=== PATIENT | female | born 1970 | race Caucasian/White ===

== ENCOUNTER 2017-01-04 18:47 | Emergency (ER) | payer BC ==
[~2017-01-04] VITALS: Ht 175.3 cm; Wt 117.2 kg
[2017-01-04 18:54] VITALS: Ht 175.3 cm; Wt 117.2 kg
[2017-01-04] MEDS ORDERED: SODIUM CHLORIDE 0.9% 1000ML 1,000 ML IV STA (20:11)
[2017-01-04 20:36] LABS: BASO % 0.2 %; BASO ABS # 0.02 K/uL (0-0.2); COMPLETE YES; EOS % 0.7 %; HEMATOCRIT 41.4 % (37-47); IG% 0.3 %; LYMPH % 8.3 %; LYMPH ABS # 0.86 K/uL (1.2-3.4); MEAN CORPUSCULAR HEMOGLOBIN 32.2 pg (25-34); MEAN PLATELET VOLUME 9.5 fL (7.4-10.4); MONO % 7.5 %; PLATELET COUNT 168 K/uL (130-400); WHITE BLOOD COUNT 10.33 K/uL (4.8-10.8)
--- NOTE | 2017-01-04 20:39 | DIAGNOSTIC IMAGING REPORT ---
CHEST ONE VIEW PORTABLE CLINICAL HISTORY: Evaluate Fever/Sepsis dyspnea COMPARISON STUDY: No previous studies for comparison. FINDINGS: Slight interstitial prominence throughout both hemithoraces. No well-defined focal infiltrate although there is potentially an early parenchymal infiltrate lateral left base. Diaphragms are smooth. Costophrenic angles are sharp. IMPRESSION: 1. Mild bronchitis. 2. Probable small developing parenchymal infiltrate lateral left base. Electronically signed by: Erick Hess M.D. 01/04/2017 8:37 PM Dictated Date/Time: 01/04/2017 8:37 PM
[2017-01-04 20:46] LABS: PARTIAL THROMBOPLASTIN RATIO 1.2; PROTHROMBIN TIME (PATIENT) 11.1 SECONDS (9.0-12.0)
[2017-01-04] MEDS ORDERED: LEVO25TA PO (20:55)
[2017-01-04] MEDS ORDERED: LEVO200T PO (20:55)
[2017-01-04] MEDS ORDERED: DEXTTAB PO (20:58)
[2017-01-04] MEDS ORDERED: GUAISYP4 PO (20:58)
[2017-01-04 21:00] LABS: ALT/SGPT 61 U/L (12-78); BLOOD UREA NITROGEN 8 mg/dl (7-18); BUN/CREATININE RATIO 8.6 (10-20); CALCIUM 10.1 mg/dl (8.5-10.1); CARBON DIOXIDE 25 mmol/L (21-32); CHLORIDE 98 mmol/L (98-107); GLUCOSE 132 mg/dl (70-99); SODIUM 135 mmol/L (136-145)
[2017-01-04 21:05] LABS: ALKALINE PHOSPHATASE 83 U/L (45-117); AST/SGOT 48 U/L (15-37)
[2017-01-04] MEDS ORDERED: KETOROLAC TROMETHAMINE 30 MG/ML VIAL IV STA (21:33)
[2017-01-04] MEDS ORDERED: AZITHROMYCIN 250 MG TAB PO STA (21:34)
[2017-01-04] MEDS ORDERED: AZITTAB PO (21:35)
--- NOTE | 2017-01-04 21:36 | EMERGENCY ROOM VISIT NOTE ---
History Report prepared by Mina: Lyric Long Under the Supervision of: Dr. Timbo Elizondo D.O. First contact with patient: 20:03 Chief Complaint: ILLNESS Stated Complaint: COUGHING,SOB,DIZZY History of Present Illness The patient is a 46 year old female who presents to the Emergency Room with complaints of worsening illness symptoms for the past 4 days. The patient was recently in [place] and on her way home she developed a dry cough. The next day she began to experience fever, chills, shortness of breath and dizziness. The patient notes rib pain from coughing. She is also experiencing decreased appetite and fatigue. She has taken Tylenol for the fever. Source of History: patient Onset: 4 days PALLETIZER Position: other (global) Quality: other (illness symptoms) Timing: worsening Associated Symptoms: + SOB, + chills, + cough, + fatigue, + fevers Review of Systems See HPI for pertinent positives & negatives. A total of 10 systems reviewed and were otherwise negative. Past Medical & Surgical Medical Problems: (1) No chronic problems Family History Patient reports no known family medical history. Social History Smoking Status: Current Every Day Smoker Marital Status: Housing Status: lives with family Current/Historical Medications Scheduled Azithromycin (Zithromax Z-Lucian), 0 PO UD Levothyroxine Sodium (Synthroid), 200 MCG PO DAILY Levothyroxine Sodium (Synthroid), 25 MCG PO DAILY Scheduled PRN Dextromethorphan-Phenylephrine (Theraflu Severe Cold & Co), 1 TAB PO Q4 PRN for COLD Guaifenesin/Codeine (Robitussin-Ac Syrup), 10 ML PO Q4H PRN for Cough Allergies Coded Allergies: Clindamycin (Verified Allergy, Unknown, hives, 01/04/17) Gentamicin (Verified Allergy, Unknown, hives, 01/04/17) Iodinated Diagnostic Agents (Verified Adverse Reaction, Unknown, nauseated , 01/04/17) Physical Exam Vital Signs Date Time Temp Pulse Resp B/P Pulse Ox O2 Delivery O2 Flow Rate FiO2 01/04/17 21:29 118 24 145/81 91 Nasal Cannula 2.0 01/04/17 20:35 111 01/04/17 20:26 113 20 128/78 90 Room Air 01/04/17 18:54 39.2 109 18 151/85 92 Room Air Physical Exam CONSTITUTIONAL/VITAL SIGNS: Reviewed / noted above. GENERAL: Non-toxic in appearance. INTEGUMENTARY: Warm, dry, and [place]. HEAD: Normocephalic. EYES: without scleral icterus or trauma. ENT/OROPHARYNX: clear and moist. LYMPHADENOPATHY/NECK: Is supple without lymphadenopathy or meningismus. RESPIRATORY: Lungs clear and equal. CARDIOVASCULAR: Regular rate and rhythm. GI/ABDOMEN: Soft and nontender. No organomegaly or pulsatile mass. No rebound or guarding. Normal bowel sounds. EXTREMITIES: Warm and well perfused. BACK: No CVA tenderness. NEUROLOGICAL: Intact without focal deficits. PSYCHIATRIC: normal affect. MUSCULOSKELETAL: Normally developed with good muscle tone. Medical Decision & Procedures ER Provider Diagnostic Interpretation: X ray results and stated below per my interpretation and radiology interpretation. CHEST ONE VIEW PORTABLE CLINICAL HISTORY: Evaluate Fever/Sepsis dyspnea COMPARISON STUDY: No previous studies for comparison. FINDINGS: Slight interstitial prominence throughout both hemithoraces. No well-defined focal infiltrate although there is potentially an early parenchymal infiltrate lateral left base. Diaphragms are smooth. Costophrenic angles are sharp. IMPRESSION: 1. Mild bronchitis. 2. Probable small developing parenchymal infiltrate lateral left base. Electronically signed by: Erick Hess M.D. 01/04/2017 8:37 PM Dictated Date/Time: 01/04/2017 8:37 PM Laboratory Results 01/04/17 20:25 Red Blood Count 4.50, Mean Corpuscular Volume 92.0, Mean Corpuscular Hemoglobin 32.2, Mean Corpuscular Hemoglobin Concent 35.0, Mean Platelet Volume 9.5, Neutrophils (%) (Auto) 83.0, Lymphocytes (%) (Auto) 8.3, Monocytes (%) (Auto) 7.5, Eosinophils (%) (Auto) 0.7, Basophils (%) (Auto) 0.2, Neutrophils # (Auto) 8.58, Lymphocytes # (Auto) 0.86, Monocytes # (Auto) 0.77, Eosinophils # (Auto) 0.07, Basophils # (Auto) 0.02 01/04/17 20:25 Test 01/04/17 20:11 01/04/17 20:16 01/04/17 20:25 Influenza Type A Antigen Neg for Influ A (NEG) Influenza Type B Antigen POS for Influ B (NEG) White Blood Count 10.33 K/uL (4.8-10.8) Red Blood Count 4.50 M/uL (4.2-5.4) Hemoglobin 14.5 g/dL (12.0-16.0) Hematocrit 41.4 % (37-47) Mean Corpuscular Volume 92.0 fL (80-100) Mean Corpuscular Hemoglobin 32.2 pg (25-34) Mean Corpuscular Hemoglobin Concent 35.0 g/dl (32-36) Platelet Count 168 K/uL (130-400) Mean Platelet Volume 9.5 fL (7.4-10.4) Neutrophils (%) (Auto) 83.0 % Lymphocytes (%) (Auto) 8.3 % Monocytes (%) (Auto) 7.5 % Eosinophils (%) (Auto) 0.7 % Basophils (%) (Auto) 0.2 % Neutrophils # (Auto) 8.58 K/uL (1.4-6.5) Lymphocytes # (Auto) 0.86 K/uL (1.2-3.4) Monocytes # (Auto) 0.77 K/uL (0.11-0.59) Eosinophils # (Auto) 0.07 K/uL (0-0.5) Basophils # (Auto) 0.02 K/uL (0-0.2) RDW Standard Deviation 43.4 fL (36.4-46.3) RDW Coefficient of Variation 12.9 % (11.5-14.5) Immature Granulocyte % (Auto) 0.3 % Immature Granulocyte # (Auto) 0.03 K/uL (0.00-0.02) Prothrombin Time 11.1 SECONDS (9.0-12.0) Prothromb Time International Ratio 1.0 (0.9-1.1) Activated Partial Thromboplast Time 30.3 SECONDS (21.0-31.0) Partial Thromboplastin Ratio 1.2 Anion Gap 12.0 mmol/L (3-11) Est Creatinine Clear Calc Drug Dose 105.7 ml/min Estimated GFR () 88.3 Estimated GFR (Non- 76.1 BUN/Creatinine Ratio 8.6 (10-20) Calcium Level 10.1 mg/dl (8.5-10.1) Total Bilirubin 0.6 mg/dl (0.2-1) Direct Bilirubin 0.2 mg/dl (0-0.2) Aspartate Amino Transf (AST/SGOT) 48 U/L (15-37) Alanine Aminotransferase (ALT/SGPT) 61 U/L (12-78) Alkaline Phosphatase 83 U/L (45-117) Total Creatine Kinase 469 U/L (26-192) Creatine Kinase MB < 0.5 ng/ml (0.5-3.6) Creatine Kinase MB Ratio (0-3.0) Troponin I < 0.015 ng/ml (0-0.045) Total Protein 8.3 gm/dl (6.4-8.2) Albumin 4.0 gm/dl (3.4-5.0) Lipase 83 U/L (73-393) Laboratory results as stated above per my review. Medications Administered Medications (Trade) Dose Ordered Sig/Isaac Route Start Time Stop Time Status Last Admin Dose Admin Sodium Chloride (Nss 1000ml) 1,000 ml @ 999 mls/hr Q1H1M STAT IV 01/04/17 20:11 01/04/17 21:11 DC 01/04/17 20:30 999 MLS/HR Ketorolac Tromethamine (Toradol Inj) 30 mg NOW STAT IV 01/04/17 21:33 01/04/17 21:34 DC 01/04/17 21:39 30 MG Azithromycin (Zithromax Tab) 500 mg NOW STAT PO 01/04/17 21:34 01/04/17 21:35 DC 01/04/17 21:40 500 MG ED Course 2003: Previous medical records were reviewed. The patient was evaluated in room C9. A complete history and physical examination was performed. 2010: Sodium Chloride 1,000 ml @ 999 mls/hr IV. 2132: Toradol Inj 30 mg IV, Zithromax 500 mg PO. 2144: Ventolin Hfa Inhaler 2 puffs INH. 2146: On reevaluation, the patient is hemodynamically stable. I discussed the results and findings with the patient. She verbalized agreement of the treatment plan. She was discharged home. Medical Decision Differential includes viral illness, influenza, streptococcal pharyngitis, meningitis, pneumonia, sinusitis, UTI, pyelonephritis, otitis media. This is a 46-year-old female who presents to the ED with a chief complaint of a fever and a cough. The patient states that she is having symptoms for the past 2-3 days. The patient's symptoms started after traveling back from [place] in a plane. Temperature here is 39.2. Heart rate is 109. Her physical exam was relatively unremarkable. CBC was normal. Chemistry panel was normal. Troponin is negative. A chest x-ray reveals a questionable left base infiltrate and bronchitis. Flu swab was positive for influenza B. Tamiflu is unlikely to be beneficial this point time. She was given a Z-Lucian because of the infiltrate as she does have a superimposed bacterial pneumonia as well. The patient is felt to be stable for discharge. She was treated here with IV fluids and IV Toradol and PO Zithromax. She was given a MDI as well. Impression Primary Impression: Influenza B Additional Impression: Pneumonia Scribe Attestation The scribe's documentation has been prepared under my direction and personally reviewed by me in its entirety. I confirm that the note above accurately reflects all work, treatment, procedures, and medical decision making performed by me. Departure Information Dispostion Home / Self-Care Prescriptions Azithromycin (ZITHROMAX Z-LUCIAN) 250 Mg Tab 0 PO UD, #1 PKT 2 TABS DAY 1, THEN 1 TAB DAILY FOR 4 DAYS Prov: Timbo Elizondo D.O. 01/04/17 Referrals Johnson Dorado M.D. (PCP) Forms HOME CARE DOCUMENTATION FORM, IMPORTANT VISIT INFORMATION, WORK / SCHOOL INSTRUCTIONS Patient Instructions My [facility] Additional Instructions Your testing today is positive for influenza B. This is a viral syndrome and will need to run its course. Drink plenty of fluids. Use Tylenol and Motrin for fever and discomfort. Get plenty of rest. Your chest x-ray also suggested a small pneumonia. Zithromax has been prescribed. Anticipate improvement over the next 7-10 days. Problem Qualifiers
[2017-01-04] MEDS ORDERED: ALBUTEROL HFA 8 GM INHALER INH ONE (21:45)
[2017-01-04 21:47] LABS: MANUAL MICROSCOPIC REQUIRED? NO; URINE APPEARANCE CLEAR (CLEAR); URINE BILIRUBIN NEG (NEG); URINE COLOR YELLOW; URINE NITRITE NEG (NEG); URINE PH 5.5 (4.5-7.5); URINE SPECIFIC GRAVITY 1.025 (1.000-1.030); UROBILINOGEN NEG (NEG)
[2017-01-04 21:49] LABS: REVIEW REQ? NO
[2017-01-04] MEDS ORDERED: ONDANSETRON HOME PACK 4MG OD TAB PO ONE (22:00)
[2017-01-04 22:15] VITALS: BP 145/76; PULSE 106; TEMP 38.4; O2SAT 92
== END 2017-01-04 22:18 | disposition home or self-care (01) ==
LOC: C.EDB 18:48 → C.EDC 22:18
DX: J11.1 Influenza due to unidentified influenza virus with other respiratory manifestations (principal); J18.9 Pneumonia, unspecified organism; F17.200 Nicotine dependence, unspecified, uncomplicated

== ENCOUNTER → 2017-10-09 | Outpatient (CLI) | payer BC ==
[~2017-10-09] MED LIST: DEXTTAB PO; GUAISYP4 PO; LEVO200T PO; LEVO25TA PO
== END | disposition home or self-care (01) ==
LOC: C.PATHSPEC 12:51
PROVIDERS: ATTEND Dentist Oral and Maxillofacial Surgery
DX: K13.21 Leukoplakia of oral mucosa, including tongue (principal)